=== PATIENT | female | born 1965 | race Caucasian/White ===

== ENCOUNTER 2025-08-28 08:14 | Emergency (ER) | payer OTHER, BC, SELFPAY ==
[2025-08-28 08:15] VITALS: BP 212/89; PULSE 72; RESP 18; TEMP 36.6; O2SAT 100
[2025-08-28 08:19] VITALS: BMI 30.2
[2025-08-28 08:22] VITALS: O2SAT 100
--- NOTE | 2025-08-28 08:36 | EDS_ITS ---
HPI History of Present Illness Chief Complaint: Shortness of Breath Informant: patient Narrative Narrative: Patient is a 60-year-old female with history of hypertension (states she lost about 50 pounds and her doctor took her off her blood pressure medicine about a year ago) presenting after chemical exposure at work. Patient was exposed to the chemical micro tox ultra at work. She states normally the chemicals diluted in the line however this morning it was not diluted and it started to spray out. She immediately had irritation of her lungs, eyes and a couple drops got on her left thigh. She states she felt that she was wheezing slightly. This occurred around 515 or 530 this morning. She went home, bathed and changed her close. She still having some slight burning in her chest when she breathes and came in for further evaluation. This is a Workmen's Compensation visit. Otherwise has been in her normal state of health. Was completely asymptomatic before this exposure. No other complaints at this time. [facility] Medical History Psoriatic arthritis Left wrist sprain Contusion of left ring finger Contusion of left middle finger Contusion of left index finger Hypertension Home Medications ?Medication ?Instructions ?Recorded ?Last Taken ?Type cholecalciferol (vitamin D3) 50 mcg PO 08/28/25 Unknow n History mcg (2,000 unit) disintegrating tablet ferrous sulfate 325 mg (65 mg 325 mg PO DAILY 08/28/25 Unknown History iron) tablet (Magdalene-Time) folic acid 1 mg tablet 1 mg PO 08/28/25 Unknown His tory methotrexate sodium 2.5 mg tablet 15 mg PO QWEEK 08/28 Unknown History Allergy/AdvReac Type Severity Reaction Status Date / Time Penicillins Allergy Unknown unknown Verified 08/28/25 08:15 Social History current occupational exposures/hazards: No Smoking Status: Never smoker alcohol intake: current alcohol intake frequency: holidays/special occasions only ROS ROS ED Constitutional Constitutional ED: Denies chills or fever(s) Eyes Eyes: Reports other Details: Mild eye irritation ENT ENT ED: Denies sore throat Cardiovascular Cardiovascular: Denies chest pain or palpitations Respiratory/Chest Respiratory/Chest: Reports cough and dyspnea; Denies sputum Gastrointestinal Gastrointestinal: Denies nausea or vomiting Integumentary Reports rash Neurologic Neurologic: Reports headache(s); Denies paresthesias or weakness Hematologic/Lymphatic Hematologic/Lymphatic: Denies easy bleeding or easy bruising EXAM Physical Exam Const Vital Signs: 08/28/25 08:15 08/28/25 08:22 08/28/25 08:43 Temperature 97.8 F Temperature Source Oral Pulse Rate 72 66 Respiratory Rate 18 16 Respiratory Effort Normal Non-Labored Short of Breath Respiratory Depth Normal Respiratory Pattern Normal Normal Blood Pressure 212/89 H Blood Pressure Mean 130 Pulse Ox 100 Oxygen Delivery Method Room Air Room Air 08/28/25 09:04 Temperature 98.6 F Temperature Source Oral Pulse Rate 74 Respiratory Rate 18 Respiratory Effort Respiratory Depth Respiratory Pattern Blood Pressure 164/90 H Blood Pressure Mean 114 Pulse Ox 97 Oxygen Delivery Method Room Air Positive well nourished and well developed General Appearance ED: well developed and NAD HEENT Reports moist mucous membranes HEENT Narrative: No oral lesions appreciated atraumatic Eyes PERRL and EOMs intact bilaterally Eyes Narrative: No conjunctival injection present Neck supple Resp normal respiratory effort Resp Narrative: Scattered crackles in the upper lung field that clears with coughing. No wheezing appreciated. Clear breath sounds at the bases. No increased work of breathing present. Cardio regular rate and regular rhythm GI non-tender and non-distended Extremity normal to inspection General Extremety ED: Negative for edema or tenderness General Extremity: Negative for edema Neuro oriented x3 Sensorium / Orientation: alert Psych mental status grossly normal Skin Skin Narrative: 3 very small areas of erythema with no associated blistering or ulceration present of the left anterior middle thigh consistent with a chemical dermatitis MDM MDM MDM Narrative Medical decision making narrative: Patient evaluated after chemical exposure. Upon arrival she is quite hypertensive however she seems to be asymptomatic from this. Will monitor and trend. Does not a history of hypertension but is currently off any medications. She still has some discomfort with her breathing will give a DuoNeb. She is already washed out her eyes and skin I do not think requires further Decon in the emergency room. 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 Low suspicion that her respiratory symptoms are hypertensive emergency she does not have any rhonchi or rales/respiratory distress concerning for flash pulmonary edema. Do not think she requires cardiac workup at this time inc luding EKG. On repeat evaluation at approximately 915?patient has clear breath sounds. Breathing comfortably. 97% on room air. States breathing feels slightly improved. Blood pressure downtrending significantly. Will be given return to work note for tomorrow. Counseled follow-up with family doctor for blood pressure check and instructed to keep a blood pressure log. Given return precautions to the ER. She verbalized agreement or stands plan. Discharged home in stable condition. At this time I do not think she requires steroids or inhaler at time of discharge Discharge Plan Triage Chief Complaint: Shortness of Breath ED Provider: Ivis Becerra Dx/Rx/DC Orders Clinical Impression: Inhalation injury due to chemical, Elevated blood pressure reading, Chemical dermatitis Instructions: ED Chemical Inhalation, ED Contact Dermatitis, ED Hypertension, To Be Confirmed Prescriptions: No Action methotrexate sodium 2.5 mg tablet 15 mg PO QWEEK folic acid 1 mg tablet 1 mg PO ferrous sulfate [Magdalene-Time] 325 mg (65 mg iron) tablet 325 mg PO DAILY cholecalciferol (vitamin D3) 50 mcg (2,000 unit) tablet,disintegrating PO Primary Care Provider: Kavita Manuel Referrals: [facility] [place] [[facility], Medical] Kavita Manuel MD [Primary Care Provider, Family Practice] Activity Restrictions/Additional Instructions: If you develop worsening respiratory/breathing symptoms please return the emergency room. Otherwise try to avoid breathing any strong smells or irritants today. As we discussed, please check your blood pressure at home once a day or every other day and keep a log to follow-up with your family doctor. Blood pressure was elevated in the emergency room. Print Language: Ivorian Disposition Disposition: Home, Self Care
[2025-08-28 08:43] VITALS: PULSE 66; RESP 16
[2025-08-28 09:04] VITALS: BP 164/90; PULSE 74; RESP 18; TEMP 37; O2SAT 97
[2025-08-28 09:36] VITALS: BP 141/85; PULSE 71; RESP 16; TEMP 36.7; O2SAT 97
== END 2025-08-28 09:37 | disposition home or self-care (01) ==
PROVIDERS: Emergency Provider Emergency Medicine; PCP Family Medicine; Visit Provider Emergency Medicine
DX: Z77.098 Contact with and (suspected) exposure to other hazardous, chiefly nonmedicinal, chemicals (principal); R06.02 Shortness of breath; I10 Essential (primary) hypertension; L30.8 Other specified dermatitis
CPT/HCPCS: 94640; 99282